=== PATIENT | male | born 1960 | race Caucasian/White ===

== ENCOUNTER → 2023-12-20 08:04 | Outpatient (REF) | payer OTHER, SELFPAY | LOC: HWRAD 08:04 | PROVIDERS: ATTENDING PHYSICIAN Pain Medicine Interventional Pain Medicine; FAMILY PHYSICIAN Nurse Practitioner Family | DX: S05.50XA Penetrating wound with foreign body of unspecified eyeball, initial encounter (principal) | CPT/HCPCS: 70030 ==

== ENCOUNTER → 2025-02-10 07:11 | Outpatient (REF) | payer OTHER, SELFPAY | LOC: RCS 07:11 | PROVIDERS: ATTENDING PHYSICIAN Nurse Practitioner Family | DX: I42.9 Cardiomyopathy, unspecified (principal); I49.9 Cardiac arrhythmia, unspecified | CPT/HCPCS: 93225; 93226; 93306 ==

== ENCOUNTER → 2025-06-06 08:39 | Outpatient (REF) | payer OTHER, SELFPAY | LOC: HWRAD 08:39 | PROVIDERS: ATTENDING PHYSICIAN Nurse Practitioner Family | DX: R94.5 Abnormal results of liver function studies (principal) | CPT/HCPCS: 76700 ==